=== PATIENT | female | born 1945 | race Caucasian/White ===

== ENCOUNTER → 2020-06-11 | Outpatient (CLI) | payer MEDICARE | LOC: MAMO 14:35 | DX: Z12.31 Encounter for screening mammogram for malignant neoplasm of breast (principal) | CPT/HCPCS: 77063; 77067 ==

== ENCOUNTER → 2021-05-24 | Outpatient (CLI) | payer MEDICARE | LOC: MAMO 09:56 | DX: Z12.31 Encounter for screening mammogram for malignant neoplasm of breast (principal) | CPT/HCPCS: 77063; 77067 ==

== ENCOUNTER 2021-07-14 18:25 | Emergency (ER) | payer MEDICARE ==
[2021-07-14 19:10] LABS: HEMOGLOBIN 14.4 gm/dl (12.3-15.3); RED BLOOD COUNT 4.71 M/UL (4.00-5.10); WHITE BLOOD COUNT 14.2 K/UL (4.5-11.0)
[2021-07-14] MEDS ORDERED: ELIQUIS5 MG PO (22:01)
== END 2021-07-14 22:35 | disposition home or self-care (01) ==
LOC: ER1 18:25
PROVIDERS: Emergency Medicine
DX: I48.91 Unspecified atrial fibrillation (principal); E78.5 Hyperlipidemia, unspecified; I10 Essential (primary) hypertension; Z90.710 Acquired absence of both cervix and uterus; Z79.01 Long term (current) use of anticoagulants
CPT/HCPCS: 71045; 80053; 82550; 82553; 83735; 83880; 84439; 84443; 84484; 85025; 93005; 99285

== ENCOUNTER → 2021-07-21 | Outpatient (CLI) | payer MEDICARE ==
[~2021-07-21] MED LIST: ELIQUIS5 MG PO
== END ==
LOC: HEART 5 14:26
DX: I48.91 Unspecified atrial fibrillation (principal)

== ENCOUNTER → 2021-09-15 | Outpatient (CLI) | payer MEDICARE ==
[~2021-09-15] MED LIST changes: +AMITRIPTYLINE H50 MG PO; +COZAAR100 MG PO; +IMITREX100 MG PO; +INDERAL TAB 4040 MG PO; +PRAVASTATIN SOD40 MG PO
== END ==
LOC: HEART 5 08:44
DX: I48.92 Unspecified atrial flutter (principal); I10 Essential (primary) hypertension; R00.2 Palpitations
CPT/HCPCS: 93306

== ENCOUNTER 2021-09-17 09:35 | Outpatient (CLI) | payer MEDICARE, OTHER ==
[~2021-09-17] VITALS: Ht 162.6 cm; Wt 89.6 kg
[~2021-09-17 09:35] MED LIST changes: -AMITRIPTYLINE H50 MG PO; -COZAAR100 MG PO; -IMITREX100 MG PO; -INDERAL TAB 4040 MG PO; -PRAVASTATIN SOD40 MG PO
[2021-09-17] MEDS ORDERED: COZAAR100 MG PO (10:26)
[2021-09-17] MEDS ORDERED: AMITRIPTYLINE H50 MG PO (10:26)
[2021-09-17] MEDS ORDERED: PRAVASTATIN SOD40 MG PO (10:27)
[2021-09-17] MEDS ORDERED: INDERAL TAB 4040 MG PO (10:29)
[2021-09-17] MEDS ORDERED: IMITREX100 MG PO (10:29)
== END 2021-09-18 08:30 | disposition home or self-care (01) ==
LOC: CATH 09:35 → PROG CARE 15:10 → CATH 09-18 08:30
DX: I48.92 Unspecified atrial flutter (principal); I48.91 Unspecified atrial fibrillation; I10 Essential (primary) hypertension; E78.5 Hyperlipidemia, unspecified; Z79.01 Long term (current) use of anticoagulants; Z79.899 Other long term (current) drug therapy; Z82.49 Family history of ischemic heart disease and other diseases of the circulatory system
CPT/HCPCS: 71045; 93005; 93609; 93620; 93621; 99152; 99153; C1730; C1733; C1766; J1644; J2250; J3010; J7040